=== PATIENT | female | born 1990 | race Caucasian/White ===

== ENCOUNTER 2017-03-18 17:30 | Observation (INO) | payer MEDICAID ==
[~2017-03-18] VITALS: Ht 154.9 cm; Wt 58.5 kg
== END 2017-03-18 18:50 | disposition home or self-care (01) ==
LOC: SPU 17:30
PROVIDERS: ADMIT Specialist; ATTEND Specialist
DX: O48.0 Post-term pregnancy (principal); Z3A.40 40 weeks gestation of pregnancy
CPT/HCPCS: 81002-TC; G0378

== ENCOUNTER 2017-03-20 06:36 | Inpatient (IN) | payer MEDICAID ==
[~2017-03-20] VITALS: Ht 154.9 cm; Wt 58.5 kg
[2017-03-20] MEDS ORDERED: OXYTOCIN/NORMAL SALINE 1,000 ML IV SCH (07:17)
[2017-03-20] MEDS ORDERED: LR 1,000 ML IV ONE (07:17)
[2017-03-20] MEDS ORDERED: LR 1,000 ML IV SCH (07:17)
[2017-03-20] MEDS ORDERED: TERBUTALINE SULFATE 1 MG/ML VIAL SUBCUT ONE (07:30)
[2017-03-20] MEDS ORDERED: NALBUPHINE HCL 10 MG/ML AMP IVP PRN (07:30)
[2017-03-20 07:39] LABS: BASOPHILS # (AUTO) 0.1 K/uL (0.0-0.2); BASOPHILS % (AUTO) 0.6 % (0.0-2.0); EOSINOPHILS # (AUTO) 0.1 K/uL (0.0-0.4); EOSINOPHILS % (AUTO) 0.7 % (0.0-4.0); HEMATOCRIT 39.1 % (36-48); HEMOGLOBIN 13.1 g/dL (12.0-16.0); LYMPHOCYTES # (AUTO) 4.3 K/uL (1.0-5.5); LYMPHOCYTES % (AUTO) 31.5 % (20.5-51.5); MEAN CORPUSCULAR HEMOGLOBIN 29 pg (27-31); MEAN CORPUSCULAR HGB CONC 34 % (32-36); MEAN CORPUSCULAR VOLUME 87 fL (79.0-98.0); MONOCYTES # (AUTO) 0.9 K/uL (0.0-1.0); MONOCYTES % (AUTO) 6.5 % (1.7-9.3); NEUTROPHILS # (AUTO) 8.3 K/uL (1.8-7.7); NEUTROPHILS % (AUTO) 60.7 % (40.0-70.0); PLATELET COUNT (AUTO) 270 K/uL (130-430); RED BLOOD CELL COUNT(AUTO) 4.47 MIL/uL (4.2-6.2); RED CELL DISTRIBUTION WIDTH 13.9 % (9.0-15.0); WHITE BLOOD COUNT (AUTO) 13.7 K/uL (4.8-10.8)
[2017-03-20] MEDS ORDERED: OXYTOCIN/NORMAL SALINE 1,000 ML IV ONE (08:03)
[2017-03-20] MEDS ORDERED: ANUSOL 1 EA SUPP.RECT (PREPARATION H) RC PRN (08:15)
[2017-03-20] MEDS ORDERED: SENNOSIDES/DOCUSATE SODIUM 1 TAB TABLET(SENOKOT-S) PO PRN (08:15)
[2017-03-20] MEDS ORDERED: LANOLIN 7 GM OINT. TP PRN (08:15)
[2017-03-20] MEDS ORDERED: HYDROCORTISONE 0.5%, 28.35 GM TOPICAL CREAM TP PRN (08:15)
[2017-03-20] MEDS ORDERED: HYDROcodone/ACETAMIN 5-325 MG TAB (NORCO/ VICODIN) PO PRN ×2 (08:15)
[2017-03-20] MEDS ORDERED: DERMOPLAST SPRAY TP PRN (08:15)
[2017-03-20] MEDS ORDERED: DOCUSATE SODIUM 100 MG CAPSULE PO PRN (08:15)
[2017-03-20] MEDS ORDERED: GLYCERIN/WITCH HAZEL (TUCKS PADS) TP PRN (08:15)
[2017-03-20] MEDS: IBUPROFEN 600 MG TABLET PO PRN ×2 (12:20→17:41)
[2017-03-20] MEDS ORDERED: TEMAZEPAM 15 MG CAPSULE PO PRN (21:00)
[2017-03-21 06:40] LABS: HEMATOCRIT 34.6 % (36-48); HEMOGLOBIN 11.8 g/dL (12.0-16.0)
[2017-03-21] MEDS ORDERED: IBUP-1480 PO (08:23)
== END 2017-03-21 10:00 | disposition home or self-care (01) | DRG 560 ==
LOC: SPU 06:36
PROVIDERS: ADMIT Specialist; ATTEND Specialist
PROC: 10E0XZZ Delivery of Products of Conception, External Approach (ICD-10-PCS; principal; 2017-03-20)
DX: O80 Encounter for full-term uncomplicated delivery (principal); Z37.0 Single live birth; Z3A.40 40 weeks gestation of pregnancy
CPT/HCPCS: 36415; 81002-TC; 85018-TC; 85025; 86592; 86886; 86900; 86901; J2590

== ENCOUNTER 2021-01-23 15:09 | Emergency (ER) | payer MEDICAID ==
[~2021-01-23] VITALS: Ht 154.9 cm; Wt 49.9 kg
[~2021-01-23 15:09] MED LIST: IBUP-1971 PO
[2021-01-23 15:10] VITALS: BP_SYST 120
--- NOTE | 2021-01-23 15:10 | NUR ---
Patient triaged and placed in waiting room. VSS and patient appears in no acute distress at this time. Accompanied by SELF, awaiting available bed, and MD notified of need for MSE.
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
--- NOTE | 2021-01-23 16:05 | NUR ---
TAKEN TO RADIOLOGY VIA WHEELCHAIR
--- NOTE | 2021-01-23 16:27 | NUR ---
DR CASAREZ OUT TO TRIAGE ROOM TO EVALUATE PT.
[2021-01-23] MEDS ORDERED: LIDOCAINE 2%, 20 ML MDV INJ ONE (16:45)
[2021-01-23] MEDS ORDERED: AMPICILLIN SODIUM/SULBACTAM NA 3 GM VIAL IM ONE (16:45)
--- NOTE | 2021-01-23 16:58 | NUR ---
BROUGHT BACK TO BED #[address] CASAREZ AT BEDSIDE.
[2021-01-23 17:10] LABS: HEMATOCRIT 39.6 % (36-48); HEMOGLOBIN 13.4 g/dL (12.0-16.0); MEAN CORPUSCULAR VOLUME 86 fL (79.0-98.0); RED BLOOD CELL COUNT(AUTO) 4.63 MIL/uL (4.2-6.2); WHITE BLOOD COUNT (AUTO) 9.2 K/uL (4.8-10.8)
[2021-01-23 17:11] LABS: BASOPHILS % (AUTO) 0.7 % (0.0-2.0); EOSINOPHILS % (AUTO) 0.5 % (0.0-4.0); LYMPHOCYTES # (AUTO) 2.2 K/uL (1.0-5.5); MEAN CORPUSCULAR HEMOGLOBIN 29 pg (27-31); MEAN CORPUSCULAR HGB CONC 34 % (32-36); MONOCYTES # (AUTO) 0.3 K/uL (0.0-1.0); MONOCYTES % (AUTO) 3.5 % (1.7-9.3); NEUTROPHILS # (AUTO) 6.5 K/uL (1.8-7.7); NEUTROPHILS % (AUTO) 71.3 % (40.0-70.0); PLATELET COUNT (AUTO) 241 K/uL (130-430); RED CELL DISTRIBUTION WIDTH 14.6 % (9.0-15.0)
[2021-01-23 17:12] LABS: BASOPHILS # (AUTO) 0.1 K/uL (0.0-0.2)
--- NOTE | 2021-01-23 17:20 | NUR ---
Unasyn IM given per MD order
--- NOTE | 2021-01-23 17:30 | NUR ---
Dr. Steen at the beside suturing the pt's lac
[2021-01-23 17:49] LABS: ERYTHROCYTE SEDIMENTATION RATE 2 MM/HR (0-20)
[2021-01-23] MEDS ORDERED: LEVO500T89 PO (18:33)
[2021-01-23 18:43] VITALS: BP_SYST 120
--- NOTE | 2021-01-23 18:44 | NUR ---
Patient given written and verbal discharge instructions and verbalizes understanding. ER MD discussed with patient the results and treatment provided. Patient in stable condition. ID arm band removed. Rx of lEVAQUIN given. Patient educated on pain management and to follow up with PMD. Pain Scale 3/10. Opportunity for questions provided and answered. Medication side effect fact sheet provided.
== END 2021-01-23 18:44 | disposition home or self-care (01) ==
LOC: SED 15:09
DX: S92.512B Displaced fracture of proximal phalanx of left lesser toe(s), initial encounter for open fracture (principal); W22.8XXA Striking against or struck by other objects, initial encounter; Y93.89 Activity, other specified; Y92.89 Other specified places as the place of occurrence of the external cause; Y99.8 Other external cause status
CPT/HCPCS: 36415; 73630; 85025; 85651; 96372; 99284; J0295; J2001; 99285